=== PATIENT | male | born 2000 | race Caucasian/White ===

== ENCOUNTER 2019-11-01 18:27 | Inpatient (IN) ==
[2019-11-01 18:52] LABS: Appearance Urine Clear (Clear); Bacteria Urine Automated Negative (Negative); Bilirubin Urine Negative (Negative); Blood Urine Trace (Negative); Cast Urine Automated 0 /lpf (0-5); Color Urine Yellow; Epithelial Cell Urine Auto 0-5 /lpf (0-5); Glucose Urine UA Negative (Negative); Ketones Urine 4+ (Negative); Leukocyte Esterase Urine Negative (Negative); Nitrite Urine Negative (Negative); Protein Urine Negative (Negative); RBC Urine Automated 0-4 /hpf (0-4); Urobilinogen Urine Negative (Negative); WBC Urine Automated 0 /hpf (0-5); pH Urine 5.5 (4.5-7.5)
[2019-11-01 19:07] LABS: Basophils # (auto) 0.03 K/uL (0-0.2); Basophils % (auto) 0.2 %; Eosinophils # (auto) 0.03 K/uL (0-0.5); Eosinophils % (auto) 0.2 %; Hematocrit (blood only) 46.4 % (42-52); Hemoglobin 15.8 g/dL (14.0-18.0); Immature Granulocytes # (auto) 0.03 K/uL (0.00-0.02); Immature Granulocytes % (auto) 0.2 %; Lymphocytes # (auto) 1.61 K/uL (1.2-3.4); Lymphocytes % (auto) 12.5 %; Mean Corpuscular Hemoglobin 31.2 pg (25-34); Mean Corpuscular Hgb Conc 34.1 g/dL (32-36); Mean Corpuscular Volume 91.7 fL (80-100); Mean Platelet Volume 11.5 fL (7.4-10.4); Monocytes # (auto) 0.76 K/uL (0.11-0.59); Monocytes % (auto) 5.9 %; Neutrophils # (auto) 10.41 K/uL (1.4-6.5); Platelet Count 259 K/uL (130-400); RDW Coefficient of Variation 13.1 % (11.5-14.5); RDW Standard Deviation 43.7 fL (36.4-46.3); Red Blood Count 5.06 M/uL (4.7-6.1); White Blood Count 12.87 K/uL (4.8-10.8)
[2019-11-01 19:17] LABS: Amphetamines+Metham, Urine Neg (Neg); Barbiturates, Urine Neg (Neg); Benzodiazepine, Urine Neg (Neg); Cocaine, Urine Neg (Neg); MDMA (Ecstacy), Urine Neg (Neg); Methadone, Urine Neg (Neg); Opiate, Urine Neg (Neg); Phencyclidine, Urine Neg (Neg)
[2019-11-01 19:19] LABS: iSTAT Creatinine 0.9 mg/dl (0.6-1.3); iSTAT Hemoglobin 16.3 g/dl (14.0-18.0); iSTAT Ionized Calcium 1.25 mmol/l (1.12-1.32); iSTAT Potassium 3.7 mmol/L (3.3-5.0)
[2019-11-01] MEDS ORDERED: IOVERSOL 100ml IV ONE (19:20)
[2019-11-01 19:23] LABS: Albumin Level 4.4 gm/dl (3.4-5.0); BUN Creatinine Ratio 9.8 (10-20); Calcium 10.3 mg/dl (8.5-10.1); Creatinine Clr Calc Pharmacy 133.5 ml/min; Potassium 3.6 mmol/L (3.5-5.1)
[2019-11-01 19:34] LABS: Bilirubin,Total 0.6 mg/dl (0.2-1); Globulin 4.2 gm/dl (2.5-4.0); Thyroid Stimulating Hormone 2.37 uIu/ml (0.300-4.500); Total Protein 8.6 gm/dl (6.4-8.2)
--- NOTE | 2019-11-01 19:36 | CT Scan Report ---
CT soft tissue neck w con HISTORY: Pt tried to strangle self TECHNIQUE: Multiaxial CT images of the neck were performed following the use of intravenous contrast. COMPARISON STUDY: None. FINDINGS: The visualized brain parenchyma and orbits are unremarkable. Pterygopalatine fossa and para tracheal fat spaces are maintained. The epiglottis and prevertebral soft tissues are normal in thickn ess. The major mucosal airways services are intact. The airway appears patent. The thyroid gland enha nces normally. No cervical lymphadenopathy. The parotid and submandibular glands are symmetric. A few prominent submental lymph nodes are noted. No soft tissue hematoma identified. Small retention cyst within the right maxillary sinus. The mastoid air cells are clear. No fractures within the cervical s pine. No pneumothorax. The lung apices are clear. The carotid arteries, vertebral arteries, and inter nal jugular veins are patent. IMPRESSION: No significant abnormality within the neck. The airway is patent. ACT 112: Negative or not required by law. Electronically signed by: Clayton Chapin M.D. 11/01/2019 7:35 PM
[2019-11-01 19:39] LABS: Acetaminophen < 2 ug/ml (10-30); Salicylate 2.9 mg/dl (2.8-20)
--- NOTE | 2019-11-01 21:27 | Emergency Department Note ---
History of Present Illness General Chief complaint: Mental Health Evaluation Stated complaint: MHID Time Seen by Provider: 11/01/19 18:37 Source: patient, family (father), RN notes reviewed, old records reviewed and police Mode of arrival: other (police) Limitations: no limitations History of Present Illness Provider complaint: Pt c/o trying to kill self Onset (ago): day(s) 1 Location: head Current Pain Intensity: 0 Associated symptoms: + denies other symptoms Treatments prior to arrival: none This is a 19-year-old male who presents the emergency department after trying to kill himself. Patient reports he took ibuprofen as well as melatonin last evening and a suicide attempt. He passed out but then woke up and he believes vomited the medications. In addition to this the patient this afternoon tried to kill himself with a towel by wrapping it around his neck and then wrapping around a doorknob. His father alerted police who found the patient. The patient denies any injury to his neck. He has no complaints at this time. The patient's father does not want the patient to go home. Home Medications Home Medications Medication Instructions Recorded Confirmed Type melatonin 5 mg PO HS PRN 11/01/19 11/01/19 History sertraline [Zoloft] 100 mg PO DAILY 11/01/19 11/01/19 History Allergies Allergy/AdvReac Type Severity Reaction Status Date / Time No Known Allergies Allergy Unverified 11/01/19 18:48 Past Med/Surg History Social History Smoking Status: Current every day smoker Tobacco Type: E-cigarettes / Vaping Feels Safe at Home: Yes Review of Systems A total of 10 systems reviewed and were otherwise negative Physical Exam Vital Signs Vital Signs - 24 hr 11/01/19 18:40 11/01/19 20:38 Temperature 37.4 C Temperature Source Oral Pulse Rate 111 H Pulse Rate [Finger] 80 Respiratory Rate 18 18 Respiratory Effort / Characteristics Non-Labored Respiratory Depth Normal Blood Pressure 176/98 H Blood Pressure [Left Arm] 130/79 Blood Pressure Mean 124 Blood Pressure Mean [Left Arm] 96 Pulse Oximetry 97 96 Oxygen Delivery Method Room Air Room Air Sepsis Recent Fever Within 48 Hours No Sepsis New/Unexplained Change in Mental Status N/A Sepsis Action Taken by Nursing No Action Required VITAL SIGNS - Vital signs and nursing notes were reviewed. GENERAL - 19-year-old male appearing stated age who is in no acute distress. Communicates well with provider and answers questions appropriately. SKIN - Without rashes, no bruising or crepitice noted to neck HEAD - NC/AT. EYES - PERRL with EOMI bilaterally. Sclera anicteric. Palpebral conjunctiva pink and moist with no injection noted. EARS - No deformities of external structures noted on gross examination bilaterally. No pain elicited with palpation of the tragus bilaterally. External auditory canals without discharge or otorrhea. Tympanic membranes pearly pradhan without retraction or bulging. No fluid or purulent material visualized behind the TM. Handle of malleus, umbo, cone of light, pars tensa/flaccid all easily visualized. NOSE - Midline and without cyanosis. No epistaxis or purulent drainage noted. Septum midline without deviation or septal hematoma noted. MOUTH/OROPHARYNX - Without perioral cyanosis. Buccal mucosa pink and moist and without leukoplakia. Tongue midline with equal elevation of palate bilaterally. No tonsillar hypertrophy, erythema, or exudates noted. dentition noted. NECK - Neck with FROM. Supple to palpation. lymphadenopathy noted. No nuchal rigidity. LUNGS - Chest wall symmetric without accessory muscle use, intercostals retractions, or central cyanosis. Normal vesicular breath sounds CTA B/L. No wheezes, rales, or rhonchi appreciated. CARDIAC - RRR with S1/S2. No murmur, rubs, or gallops appreciated. ABDOMEN - Abdominal contour without pulsations or visible masses. BS normoactive all four quadrants. No tenderness, palpable masses, hepatosplenomegaly, or ascites noted. EXTREMITIES - No clubbing or peripheral cyanosis. No pretibial edema present. +3/5 radial, posterior tibial, and dorsalis pedis pulses palpated throughout. +5/5 strength noted in UE/LE bilaterally. NEUROLOGIC - Cranial nerves II through XII grossly intact. Sensory intact to light touch throughout. Patellar reflexes +2/4. PSYCH - A&Ox3 and cooperates fully with examiner. Pt is very pleasant and interacts well with examiner. Course Administered Medications Discontinued Medications Ioversol (Ioversol 100ml) 93 ml IV ONCE ONE Stop: 11/01/19 19:21 Last Admin: 11/01/19 19:20 Dose: 93 ml Documented by: [id number] Medical Decision Making Differential Diagnosis Mood disorder, infection, hypoglycemia, electrolyte abnormalities, cardiac sources, intracerebral event, toxicologic, trauma, neurologic, as well as other pathologies. Medical Records Attestation: I reviewed the patient's medical records. Home Medications Current Medication List: was personally reviewed by me Laboratory Data Attestation: I reviewed the patient's lab results. Result diagrams: 11/01/19 18:56 11/01/19 18:56 Lab Results 11/01/19 11/01/19 11/01/19 Range/Units 18:39 18:39 18:56 WBC 12.87 H (4.8-10.8) K/uL RBC 5.06 (4.7-6.1) M/uL Hgb 15.8 (14.0-18.0) g/dL POC Hgb (14.0-18.0) g/dl Hct 46.4 (42-52) % POC Hct (42-52) % MCV 91.7 (80-100) fL MCH 31.2 (25-34) pg MCHC 34.1 (32-36) g/dL RDW Std Deviation 43.7 (36.4-46.3) fL RDW Coeff of Chelle 13.1 (11.5-14.5) % Plt Count 259 (130-400) K/uL MPV 11.5 H (7.4-10.4) fL Immature Gran % (Auto) 0.2 % Neut % (Auto) 81.0 % Lymph % (Auto) 12.5 % Tate % (Auto) 5.9 % Eos % (Auto) 0.2 % Baso % (Auto) 0.2 % Neut # (Auto) 10.41 H (1.4-6.5) K/uL Lymph # (Auto) 1.61 (1.2-3.4) K/uL Tate # (Auto) 0.76 H (0.11-0.59) K/uL Eos # (Auto) 0.03 (0-0.5) K/uL Baso # (Auto) 0.03 (0-0.2) K/uL Immature Gran # (Auto) 0.03 H (0.00-0.02) K/uL POC Sodium (135-144) mmol/L Sodium (136-145) mmol/L POC Potassium (3.3-5.0) mmol/L Potassium (3.5-5.1) mmol/L POC Chloride (101-112) mmol/L Chloride (98-107) mmol/L Carbon Dioxide (21-32) mmol/L POC Total CO2 (24-31) mmol/L Anion Gap (3-11) POC Anion Gap (16-25) mmol/L POC BUN (7-18) mg/dl BUN (7-18) mg/dl Creatinine (0.6-1.4) mg/dl POC Creatinine (0.6-1.3) mg/dl Est Cr Clr Drug Dosing ml/min Est GFR ( Amer) Est GFR (Non-Af Amer) BUN/Creatinine Ratio (10-20) Glucose (70-99) mg/dl POC Glucose (other) (70-99) mg/dl Calcium (8.5-10.1) mg/dl POC Ioniz Calcium Amy (1.12-1.32) mmol/l Total Bilirubin (0.2-1) mg/dl AST (15-37) U/L ALT (12-78) U/L Alkaline Phosphatase (45-117) U/L Total Protein (6.4-8.2) gm/dl Albumin (3.4-5.0) gm/dl Globulin (2.5-4.0) gm/dl Albumin/Globulin Ratio (0.9-2) TSH (0.300-4.500) uIu/ml Urine Color Yellow Urine Appearance Clear (Clear) Urine pH 5.5 (4.5-7.5) Ur Specific [place] 1.020 (1.000-1.030) Urine Protein Negative (Negative) Urine Glucose (UA) Negative (Negative) Urine Ketones 4+ H (Negative) Urine Blood Trace H (Negative) Urine Nitrite Negative (Negative) Urine Bilirubin Negative (Negative) Urine Urobilinogen Negative (Negative) Ur Leukocyte Esterase Negative (Negative) Urine WBC (Auto) 0 (0-5) /hpf Urine RBC (Auto) 0-4 (0-4) /hpf U Hyaline Cast (Auto) 0 (0-5) /lpf U Epithel Cells (Auto) 0-5 (0-5) /lpf Urine Bacteria (Auto) Negative (Negative) Salicylates (2.8-20) mg/dl Urine Opiates Screen Neg (Neg) Ur Methadone, Qual Neg (Neg) Acetaminophen (10-30) ug/ml Urine Barbiturates Neg (Neg) Ur Phencyclidine (PCP) Neg (Neg) U Amphetamin/Meth Scrn Neg (Neg) MDMA (Ecstasy) Screen Neg (Neg) U Benzodiazepines Scrn Neg (Neg) Ur Cocaine Metabolite Neg (Neg) U Marijuana (THC) Screen Neg (Neg) Ethyl Alcohol mg/dL (0-3) mg/dl 11/01/19 11/01/19 11/01/19 Range/Units 18:56 18:56 18:56 WBC (4.8-10.8) K/uL RBC (4.7-6.1) M/uL Hgb (14.0-18.0) g/dL POC Hgb (14.0-18.0) g/dl Hct (42-52) % POC Hct (42-52) % MCV (80-100) fL MCH (25-34) pg MCHC (32-36) g/dL RDW Std Deviation (36.4-46.3) fL RDW Coeff of Chelle (11.5-14.5) % Plt Count (130-400) K/uL MPV (7.4-10.4) fL Immature Gran % (Auto) % Neut % (Auto) % Lymph % (Auto) % Tate % (Auto) % Eos % (Auto) % Baso % (Auto) % Neut # (Auto) (1.4-6.5) K/uL Lymph # (Auto) (1.2-3.4) K/uL Tate # (Auto) (0.11-0.59) K/uL Eos # (Auto) (0-0.5) K/uL Baso # (Auto) (0-0.2) K/uL Immature Gran # (Auto) (0.00-0.02) K/uL POC Sodium (135-144) mmol/L Sodium 137 (136-145) mmol/L POC Potassium (3.3-5.0) mmol/L Potassium 3.6 (3.5-5.1) mmol/L POC Chloride (101-112) mmol/L Chloride 102 (98-107) mmol/L Carbon Dioxide 23 (21-32) mmol/L POC Total CO2 (24-31) mmol/L Anion Gap 12.0 H (3-11) POC Anion Gap (16-25) mmol/L POC BUN (7-18) mg/dl BUN 10 (7-18) mg/dl Creatinine 1.05 (0.6-1.4) mg/dl POC Creatinine (0.6-1.3) mg/dl Est Cr Clr Drug Dosing 133.5 ml/min Est GFR ( Amer) 117.0 Est GFR (Non-Af Amer) 101.0 BUN/Creatinine Ratio 9.8 L (10-20) Glucose 88 (70-99) mg/dl POC Glucose (other) (70-99) mg/dl Calcium 10.3 H (8.5-10.1) mg/dl POC Ioniz Calcium Amy (1.12-1.32) mmol/l Total Bilirubin 0.6 (0.2-1) mg/dl AST 14 L (15-37) U/L ALT 18 (12-78) U/L Alkaline Phosphatase 116 (45-117) U/L Total Protein 8.6 H (6.4-8.2) gm/dl Albumin 4.4 (3.4-5.0) gm/dl Globulin 4.2 H (2.5-4.0) gm/dl Albumin/Globulin Ratio 1.0 (0.9-2) TSH 2.370 (0.300-4.500) uIu/ml Urine Color Urine Appearance (Clear) Urine pH (4.5-7.5) Ur Specific [place] (1.000-1.030) Urine Protein (Negative) Urine Glucose (UA) (Negative) Urine Ketones (Negative) Urine Blood (Negative) Urine Nitrite (Negative) Urine Bilirubin (Negative) Urine Urobilinogen (Negative) Ur Leukocyte Esterase (Negative) Urine WBC (Auto) (0-5) /hpf Urine RBC (Auto) (0-4) /hpf U Hyaline Cast (Auto) (0-5) /lpf U Epithel Cells (Auto) (0-5) /lpf Urine Bacteria (Auto) (Negative) Salicylates 2.9 (2.8-20) mg/dl Urine Opiates Screen (Neg) Ur Methadone, Qual (Neg) Acetaminophen < 2 L (10-30) ug/ml Urine Barbiturates (Neg) Ur Phencyclidine (PCP) (Neg) U Amphetamin/Meth Scrn (Neg) MDMA (Ecstasy) Screen (Neg) U Benzodiazepines Scrn (Neg) Ur Cocaine Metabolite (Neg) U Marijuana (THC) Screen (Neg) Ethyl Alcohol mg/dL < 3.0 (0-3) mg/dl 11/01/19 Range/Units 19:06 WBC (4.8-10.8) K/uL RBC (4.7-6.1) M/uL Hgb (14.0-18.0) g/dL POC Hgb 16.3 (14.0-18.0) g/dl Hct (42-52) % POC Hct 48 (42-52) % MCV (80-100) fL MCH (25-34) pg MCHC (32-36) g/dL RDW Std Deviation (36.4-46.3) fL RDW Coeff of Chelle (11.5-14.5) % Plt Count (130-400) K/uL MPV (7.4-10.4) fL Immature Gran % (Auto) % Neut % (Auto) % Lymph % (Auto) % Tate % (Auto) % Eos % (Auto) % Baso % (Auto) % Neut # (Auto) (1.4-6.5) K/uL Lymph # (Auto) (1.2-3.4) K/uL Tate # (Auto) (0.11-0.59) K/uL Eos # (Auto) (0-0.5) K/uL Baso # (Auto) (0-0.2) K/uL Immature Gran # (Auto) (0.00-0.02) K/uL POC Sodium 139 (135-144) mmol/L Sodium (136-145) mmol/L POC Potassium 3.7 (3.3-5.0) mmol/L Potassium (3.5-5.1) mmol/L POC Chloride 100 L (101-112) mmol/L Chloride (98-107) mmol/L Carbon Dioxide (21-32) mmol/L POC Total CO2 22 L (24-31) mmol/L Anion Gap (3-11) POC Anion Gap 23.0 (16-25) mmol/L POC BUN 11 (7-18) mg/dl BUN (7-18) mg/dl Creatinine (0.6-1.4) mg/dl POC Creatinine 0.9 (0.6-1.3) mg/dl Est Cr Clr Drug Dosing ml/min Est GFR ( Amer) Est GFR (Non-Af Amer) BUN/Creatinine Ratio (10-20) Glucose (70-99) mg/dl POC Glucose (other) 89 (70-99) mg/dl Calcium (8.5-10.1) mg/dl POC Ioniz Calcium Amy 1.25 (1.12-1.32) mmol/l Total Bilirubin (0.2-1) mg/dl AST (15-37) U/L ALT (12-78) U/L Alkaline Phosphatase (45-117) U/L Total Protein (6.4-8.2) gm/dl Albumin (3.4-5.0) gm/dl Globulin (2.5-4.0) gm/dl Albumin/Globulin Ratio (0.9-2) TSH (0.300-4.500) uIu/ml Urine Color Urine Appearance (Clear) Urine pH (4.5-7.5) Ur Specific [place] (1.000-1.030) Urine Protein (Negative) Urine Glucose (UA) (Negative) Urine Ketones (Negative) Urine Blood (Negative) Urine Nitrite (Negative) Urine Bilirubin (Negative) Urine Urobilinogen (Negative) Ur Leukocyte Esterase (Negative) Urine WBC (Auto) (0-5) /hpf Urine RBC (Auto) (0-4) /hpf U Hyaline Cast (Auto) (0-5) /lpf U Epithel Cells (Auto) (0-5) /lpf Urine Bacteria (Auto) (Negative) Salicylates (2.8-20) mg/dl Urine Opiates Screen (Neg) Ur Methadone, Qual (Neg) Acetaminophen (10-30) ug/ml Urine Barbiturates (Neg) Ur Phencyclidine (PCP) (Neg) U Amphetamin/Meth Scrn (Neg) MDMA (Ecstasy) Screen (Neg) U Benzodiazepines Scrn (Neg) Ur Cocaine Metabolite (Neg) U Marijuana (THC) Screen (Neg) Ethyl Alcohol mg/dL (0-3) mg/dl Imaging Data Radiologist's Impression: [facility] [place] [phone] CT Scan Report Patient: YISSEL GEORGE Admit Date: 11/01/19 MR#: [id number] Address1: Acct ID:[id number] Address2: Date: 2000 [facility] Zip: Age: 19 Location: ED Sex: M Room/Bed: Att Phy: Diagnosis: MHID Bouch[place] Phy: PCP,NO Service Date: 11/01/19 [facility] Phy: Interpreting Phy: Clayton Chapin MD Admit Phy: Ordering Phy: Santiago Saavedra MD cc: ~ CT soft tissue neck w con HISTORY: Pt tried to strangle self TECHNIQUE: Multiaxial CT images of the neck were performed following the use of intravenous contrast. COMPARISON STUDY: None. FINDINGS: The visualized brain parenchyma and orbits are unremarkable. Pterygopa latine fossa and paratracheal fat spaces are maintained. The epiglottis and prevertebral soft tissues are normal in thickness. The major mucosal airways services are intact. The airway appears patent. The thyroid gland enhances normally. No cervical lymphadenopathy. The parotid and submandibular glands are symmetric. A few prominent submental lymph nodes are noted. No soft tissue hematoma identified. Small retention cyst within the right maxillary sinus. The mastoid air cells are clear. No fractures within the cervical spine. No pneumothorax. The lung apices are clear. The carotid arteries, vertebral arteries, and internal jugular veins are patent. IMPRESSION: No significant abnormality within the neck. The airway is patent. ACT 112: Negative or not required by law. Electronically signed by: Clayton Chapin M.D. 11/01/2019 7:35 PM Dictated: 11/01/191927 Transcribed: 11/01/191927 [facility] Narrative This is a 19-year-old male who presents emergency department with 2 suicide attempts the past 12 hours. Due to the nature of the patient second attempt he was sent for CAT scan of the soft tissue of the neck. This does not show any evidence of injury. He was medically cleared by me he was independently evaluated by psychiatric case management. Patient was seen and evaluated as above in room A5. Review was performed of nursing notes and vital signs. I did review pertinent previous visits and patient history. After obtaining a thorough history and physical examination the above work up was performed. The patient was evaluated during the global COVID-19 pandemic, and that diagnosis was suspected/considered upon their initial presentation. Their evaluation, treatment and testing was consistent with current guidelines for patients who present with complaints or symptoms that may be related to COVID- 19. Impression & Plan Suicide gesture, Mood disorder Discharge Plan Visit Data Chief Complaint: Mental Health Evaluation Stated Complaint: MHID ED Provider: Santiago Saavedra Discharge Problem: Suicide gesture, Mood disorder Patient Disposition: Admitted As Inpatient Discharge Instructions Interventions: ED Discharge Assessment Last Done: 11/02/19 00:00 Discharge Problem: Suicide gesture Qualifiers: Encounter type: initial encounter Qualified Code(s): X83.8XXA - Intentional self-harm by other specified means, initial encounter
[2019-11-02] MEDS ORDERED: ACETAMINOPHEN 325 MG TAB PO PRN (00:55)
[2019-11-02] MEDS ORDERED: BISMUTH SUBSALICYLATE PER ML OMNICELL CHARGE PO PRN (00:55)
[2019-11-02] MEDS ORDERED: SODIUM CHLORIDE 0.65% NA SOLN 45 ML (OCEAN) PRN (00:55)
[2019-11-02] MEDS ORDERED: ALUMINUM/MAGNESIUM SUSP 30 ML UDC PO PRN (00:55)
[2019-11-02] MEDS ORDERED: MAGNESIUM HYDROXIDE SUSP 30 ML UDC PO PRN (00:55)
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
--- NOTE | 2019-11-02 15:04 | Communication Note ---
Date of Service: November 02, 2019 Called patient's parents after received a VM from his mother, Ayanna, requesting a call back as they wanted to talk to me prior to the family meeting tomorrow. They wanted to know about the initial assessment, reviewed the patient's initial presentation and his report that his suicidal gestures were not intended to end his life, but were designed to allow him to go home quickly, as he was lonely and homesick. His parents state he has "never really acknowledged that in the past," and is often not truthful about his intentions with his actions. They are concerned that he has struggled to cope with life outside of the house, and has failed to launch. He has been working on this and they thought he was doing better over the summer, was going to work and the gym and interacting with others well. Discussed that I'd like to discuss this with Dr. Smith who has been working with him for a couple of years. They spoke with her and she's recommended an intensive therapy program ([facility]?) which they have in their area. While on the phone with parents, he called them on another phone and told them he submitted a 72 hour notice requesting to leave the hospital, as he wanted to go home. They are not in favor of rapid discharge and want him to have "a plan to move to move forward."
[2019-11-03] MEDS ORDERED: MELATONIN 3 MG TAB PO PRN (08:45)
[2019-11-03] MEDS: SERTRALINE HCL 100 MG TABLET PO SCH (09:25)
--- NOTE | 2019-11-03 13:17 | Psychiatric Progress Note ---
Date of Service November 03, 2019 Impression / Recommendations Impression 19 y/o [employer] student from [facility] who has a history of depression and anxiety, and is admitted voluntarily with worsening mood and multiple suicidal gestures (overdose and strangulation w/ a towel). He reports acute mood decompensation with move to [place] and wants to return home with his parents, where he feels "safe" and "comfortable". Pt is now considering a PHP (as previously discussed with his outpatient psychiatrist), and feels he may not be able to continued online classes through [employer]. Parents were involved in a family meeting via phone - it seems patient may be misinterpreting some of their requests for treatment. Pt did submit a 72-hour notice, which expires on 11/05/2019. Pt has been preoccupied with discharge, though clearly has not yet processed many of the events leading to his admission. Aftercare planning is still in progress. Inpatient treatment is medically necessary due to the risk of suicide if discharged prematurely. (1) Suicide gesture: 11/01 - No medical sequelae of overdose - Encourage patient to engage in groups, work on healthy coping skills and discharge safety plan - will recommend no access to meds. He denies access to guns. - Schedule family meeting with parents. Patient wants to move home and do classes remotely. 11/02 - Pt denies current SI, but has only been investing superficial efforts in development of safety plan - Discussed continued inpatient stay to ensure stability of mood and that patient has worked on way to better tolerate stress and frustration - 72-hour notice submitted. Explained to patient the ongoing safety concerns related to discharge at this time. We are recommending ongoing hospitalization based on reasoning above. (2) Depression: 11/01 - Continue home dose of sertraline 100mg daily. Patient reports this dose has been effective for mood and anxiety symptoms, and symptoms were only exacerbated 5 days ago in the context of transferring to [place]/moving away from home. - Coordinate with outpatient psychiatrist Dr. Smith in [place]. Explore whether she will do therapy, or if he should be referred for an individual therapist. 11/02 - Continue sertraline 100mg. - Brief coordination via phone with Dr. Smith - reported that most of the issues patient has been facing require therapeutic intervention as opposed to medication adjustments, and has been recommending PHP even prior to this hospitalization. She is available this afternoon and is hoping to be able to coordinate more with staff regarding discharge plan. - Pt agreeable with PHP referrals - Family meeting with parents this morning. Ultimately, it seems parents will allow patient to return home, but they are requesting additional efforts from the patient regarding a clear plan for discharge and commitment to treatment. It seems that the patient is not yet understanding of this request, and he remains preoccupied with discharge timeline. Risk Factors Assessment Male: Yes : Yes Do You Have Access To A Gun?: No (not at his dorm or at parents' house) Health Problems: No Mental Health Diagnoses: Yes Substance Use Disorders: No Previous Attempt: Yes Previous Attempt; Highly Lethal: No Family History of Suicide: No Previous Psychiatric Hospitalization: Yes Hopelessness: Yes Smoker: Yes Protective Factors Assessment Mandaen Beliefs: No : No Responsible for Young Children: No Employed: No Stable Relationships: Yes Supportive Family: Yes Interval History Identifying Information YISSEL GEORGE is a 19-year-old [employer] student from [place], [place] who has a history of depression, and was admitted on 11/01/19 22:58 on a 201 voluntary commitment for suicide attempts x 2. Chief Complaint "I'm really doing a lot better now. What started it was that I was having issues and I felt alone." Review of Systems Notes Constitutional: denied Cardiovascular: denied Respiratory: denied Gastrointestinal: denied Neurological: denied Psychiatric: denies symptoms other than stated above Total of at least 10 systems reviewed, pertinent positives as above and in HPI. Sleep Information Total Hours of Sleep: 7.25 Sleep Comments: pt on q-15 minute checks Meal Information Percent Meal Consumed - Breakfast: 90 Percent Meal Consumed - Lunch: 100 Percent Meal Consumed - Dinner: 80 Subjective Subjective Patient was seen & assessed and interval progress reviewed with nursing and s ocial work. Staff report the patient has been attending group programming. He reportedly emailed his outpatient psychiatrist last evening for coordination of aftercare planning. It was reported by patient that he had performed the multiple suicidal gestures to manipulate his parents into allowing him to return home rather than remain in school. Family meeting is scheduled for this morning with parents, with reports that they are willing for patient to return home but only if patient has invested time in creating a clear plan for how he plans to proceed. This provider was able to briefly speak with the patient's outpatient psychaitrist, Dr. Nathaly Smith, who states she had been speaking with the family about recommendation for PHP. She felt patient's presentation is not likely amenable to medication adjustments, but rather therapeutic interventions. Pt was seen today to assess progress since admission. Pt appears euthymic and begins our session by sharing about all that he feels he has learned from groups. He does admit that his suicidal gestures and presentation was related to "I was having issues and I felt alone." Pt was asked to provide a summary of the phone meeting with his parents. He initially stated "they just want to make sure you, or another medical provider, are ok with me being discharged." This provider explained that we are not in support of discharge at this time, and shared concerns related to multiple attempts to harm himself, very brief hospitalization thus far, and limited time to focus on safety planning and developing coping skills to assist him in times of stress. When asked more specific questions about the meeting, the patient states "I realized I need to start making my own decisions, and the first step is me deciding when I'm ready to leave." Pt shared that he felt "unsupported" by staff, perceiving that we are taking "my parents side" rather than supporting his request for discharge. Pt was reminded that while his thoughts are taken into account, discharge planning is a treatment team decision - and that we are rather concerned that discharge at this time would be very premature. Pt was asked to share what has changed since his admission, and he was able to insightfully state "I realized I need to learn to be comfortable with being uncomfortable." Unfortunately, when patient was asked how he felt he could apply this to his life, he returned to "be more assertive and independent, like deciding what I think I need instead of letting my parents make decisions for me." Pt is able to state his plans on discharge would be to return home and begin a PHP to focus on therapy and "really get into what I need for my mental health." He states "academics come second", and recognizes that he may not be able to do online course work for [employer] if he is enrolled in a PHP. We discussed the logistics of a 72-hour notice, with this provider explaining possible discharge outcomes (i.e. 302 if acute safety concerns, AMA discharge, etc.) and ultimately reviewed recommendation that patient rescind his 72-hour notice. Pt requests multiple times that this provider call his parents directly to share "support of my 70, that you feel I am ready to leave Thursday." This provider continued to redirect conversation to treatment goals and explained that it was premature to state that we would support Thursday discharge. Pt was encouraged to focus on continued group attendance and clear plans for discharge (schedule, routines, communication with parents, and commitment to treatment). He denied additional needs or concerns. Pt did request to speak with this provider again about 5 minutes after our session to request this provider call his parents to share support of discharge - again redirected patient to treatment goals, development of safety plan, and working on practicing effective coping strategies. Physical Exam Vital Signs (Past 24 Hours) Last Vital Signs Temp 36.9 C 11/03/19 07:09 Pulse 92 H 11/03/19 07:10 Resp 18 11/03/19 07:09 BP 127/78 11/03/19 07:10 Pulse Ox 98 11/01/19 23:59 Results & Data ([facility]) Current Inpatient Medications Current Inpatient Medications: Current Inpatient Medications Acetaminophen (Acetaminophen 325 Mg Tab) 650 mg PO Q4H PRN PRN Reason: Headache or Minor Fever Stop: 12/02/19 00:54 Al Hydrox/Mg Hydrox/Simethicone (Aluminum/Magnesium Susp 30 Ml Udc) 30 ml PO Q4H PRN PRN Reason: GI Upset Stop: 12/02/19 00:54 Bismuth Subsalicylate (Bismuth Subsalicylate Per Ml Omnicell Charge) 15 ml PO PRN PRN PRN Reason: Loose Stool Stop: 12/02/19 00:54 Hydroxyzine HCl (Hydroxyzine Hcl 25 Mg Tab) 50 mg PO HSZ PRN PRN Reason: Insomnia Stop: 12/02/19 00:54 Hydroxyzine HCl (Hydroxyzine Hcl 25 Mg Tab) 25 mg PO Q4H PRN PRN Reason: Anxiety Stop: 12/02/19 00:54 Magnesium Hydroxide (Magnesium Hydroxide Susp 30 Ml Udc) 30 ml PO DAILY PRN PRN Reason: Constipation Stop: 12/02/19 00:54 Melatonin (Melatonin 3 Mg Tab) 3 mg PO HSZ PRN; Protocol PRN Reason: Sleep Stop: 12/03/19 08:44 Sertraline HCl (Sertraline Hcl 100 Mg Tablet) 100 mg PO DAILY [facility] Stop: 12/03/19 08:59 Last Admin: 11/03/19 09:25 Dose: 100 mg Documented by: Sodium Chloride (Sodium Chloride 0.65% Na Soln 45 Ml ([place])) 1 - 2 sprays NA PRN PRN PRN Reason: Nasal Dryness/Congestion Stop: 12/02/19 00:54 Mental Health & Subst Abuse Tx Psychiatrist Name of Psychiatrist: Dr Nathaly Smith Psychiatrist's Date of Appointment with Psychiatrist: 11/02/19 Time of Appointment with Psychiatrist: 1600 Therapist Name of Therapist: None [employer] Racing Handicapper Name of Harness Racing Handicapper: None Post Discharge Appointments Primary Care Physician Name Of Family Doctor: Dr Melo Contact Information Discharge Discharge Address: [address] [place] [id number] (1) Suicide gesture Encounter type: initial encounter Qualified Code(s): X83.8XXA - Intentional self-harm by other specified means, initial encounter
--- NOTE | 2019-11-03 16:27 | Communication Note ---
Date of Service: November 03, 2019 Spoke with patient who approached me immediately on arrival on the unit asking if he could leave after his meeting, focused on how quickly he can return home. He has social anxiety disorder, mild ASD, poor self esteem, but is very avoidant and possibly has avoidant PD. He tends to avoid anything that challenges him out of his comfort zone. He is not always truthful, re: nicotine use and communication w/ an ex girlfriend. Mother can be controlling, and he has little drive so allows he to direct things for him. He contacted his doctor to tell her she needed to convince his parents to let him come home. She is recommending PHP.
[2019-11-04] MEDS: SERTRALINE HCL 100 MG TABLET PO SCH (09:17)
--- NOTE | 2019-11-04 12:43 | Psychiatric Progress Note ---
Date of Service November 04, 2019 Impression / Recommendations Impression 19 y/o [employer] student from [facility] who has a history of depression and anxiety, and is admitted voluntarily with worsening mood and multiple suicidal gestures (overdose and strangulation w/ a towel). He reports acute mood decompensation with move to [place] and wants to return home with his parents, where he feels "safe" and "comfortable". Pt is now considering a PHP (as previously discussed with his outpatient psychiatrist), and feels he may not be able to continued online classes through [employer]. Parents were involved in a family meeting via phone - it seems patient may be misinterpreting some of their requests for treatment. Pt did submit a 72-hour notice, which expires on 11/05/2019. Pt has been preoccupied with discharge. Aftercare planning now complete, though due to safety concern and obvious need to further develop effective coping strategies, it was recommended patient remain in the hospital until the expiration of his 72-hour notice. Inpatient treatment is medically necessary due to the risk of suicide if discharged prematurely. (1) Suicide gesture: 11/01 - No medical sequelae of overdose - Encourage patient to engage in groups, work on healthy coping skills and discharge safety plan - will recommend no access to meds. He denies access to guns. - Schedule family meeting with parents. Patient wants to move home and do classes remotely. 11/02 - Pt denies current SI, but has only been investing superficial efforts in development of safety plan - Discussed continued inpatient stay to ensure stability of mood and that patient has worked on way to better tolerate stress and frustration - 72-hour notice submitted. Explained to patient the ongoing safety concerns related to discharge at this time. We are recommending ongoing hospitalization based on reasoning above. (2) Depression: 11/01 - Continue home dose of sertraline 100mg daily. Patient reports this dose has been effective for mood and anxiety symptoms, and symptoms were only exacerbated 5 days ago in the context of transferring to [place]/moving away from home. - Coordinate with outpatient psychiatrist Dr. Smith in [place], [place]. Explore whether she will do therapy, or if he should be referred for an individual therapist. 11/02 - Continue sertraline 100mg. - Brief coordination via phone with Dr. Smith - reported that most of the issues patient has been facing require therapeutic intervention as opposed to medication adjustments, and has been recommending PHP even prior to this hospitalization. She is available this afternoon and is hoping to be able to coordinate more with staff regarding discharge plan. - Pt agreeable with PHP referrals - Family meeting with parents this morning. Ultimately, it seems parents will allow patient to return home, but they are requesting additional efforts from the patient regarding a clear plan for discharge and commitment to treatment. It seems that the patient is not yet understanding of this request, and he remains preoccupied with discharge timeline. 11/03 - Continue as above - Intake scheduled with PHP, aftercare plans discussed with patient and parents - Anticipate discharge tomorrow at expiration of 72-hour notice Risk Factors Assessment Male: Yes : Yes Do You Have Access To A Gun?: No (not at his dorm or at parents' house) Health Problems: No Mental Health Diagnoses: Yes Substance Use Disorders: No Previous Attempt: Yes Previous Attempt; Highly Lethal: No Family History of Suicide: No Previous Psychiatric Hospitalization: Yes Hopelessness: Yes Smoker: Yes Protective Factors Assessment Moravian Beliefs: No : No Responsible for Young Children: No Employed: No Stable Relationships: Yes Supportive Family: Yes Interval History Identifying Information YISSEL GEORGE is a 19-year-old M [employer] student from [place], [place] who has a history of depression, and was admitted on 11/01/19 22:58 on a 201 voluntary commitment for suicide attempts x 2. Chief Complaint "Oh my gosh, I'm doing a million times better." Review of Systems Notes Constitutional: denied Cardiovascular: denied Respiratory: denied Gastrointestinal: denied Neurological: denied Psychiatric: denies symptoms other than stated above Total of at least 10 systems reviewed, pertinent positives as above and in HPI. Sleep Information Total Hours of Sleep: 8.25 Sleep Comments: pt on q-15 minute checks Meal Information Percent Meal Consumed - Breakfast: 100 Percent Meal Consumed - Lunch: 90 Percent Meal Consumed - Dinner: 100 Subjective Subjective Patient was seen & assessed and interval progress reviewed with treatment team. Staff report the patient has been attending group programming and continues to be focused on discharge. He has requested to meet with numerous staff today to confirm the plan for discharge tomorrow. Pt had a family meeting with his parents yesterday, and an additional call with parents today to discuss aftercare planning which includes an upcoming intake for an IOP. Pt rated his mood an 8/10. Pt was seen today to assess progress since admission. Pt states "oh my gosh, I'm doing a million times better." He continues to speak about how helpful his hospitalization as been and continues to given complements to various staff. Pt states "this is a new chapter in my life, and I hope it's one of more independence." Pt says the follow-up phone call with his parents went well, and only when asked, discussed restrictions that are going to be in place on discharge. Pt states "my dad told me I don't live at a hotel, that they are going to be expecting me to do my own laundry and make my bed." Pt states he is fine with these expectations as "they will help me be more independent." Pt continues to report feeling comfortable with discharge tomorrow at the expiration of his 72-hour notice. He continues to deny SI. Pt denies other needs or concerns today. Physical Exam Psychiatric Orientation: alert, oriented x 3 and cooperative Apperance: appropriately dressed, appropriately groomed and appeared stated age Eye Contact: good eye contact Motor Behavior: steady gait and station and no abnormal motor movements Speech: normal rate/rhythm/volume of speech Affect: euthymic affect and mood congruent with affect Mood: no depressed mood ("I actually feel 1000% happy!") and no anxious mood Thought Process: goal directed thought process and + concrete thought process Thought Content: + cognitive distortions (seems to be most consistent with mild ASD diagnosis); no delusions, no hopelessness and no worthlessness Suicidal Thoughts: denies suicidal thoughts Homicidal Thoughts: denies homicidal thoughts Hallucinations: no auditory hallucinations and no visual hallucinations Cognition: recent memory grossly intact, attention grossly intact and language grossly intact Estimated Intelligence: consistent with education level Insight: + limited insight (chronically limited, though improved from admission) Judgement: + fair judgement Vital Signs (Past 24 Hours) Last Vital Signs Temp 36.6 C 11/04/19 06:00 Pulse 109 H 11/04/19 06:32 Resp 18 11/04/19 06:00 BP 117/70 11/04/19 06:32 Pulse Ox 98 11/01/19 23:59 Results & Data ([facility]) Current Inpatient Medications Current Inpatient Medications: Current Inpatient Medications Acetaminophen (Acetaminophen 325 Mg Tab) 650 mg PO Q4H PRN PRN Reason: Headache or Minor Fever Stop: 12/02/19 00:54 Al Hydrox/Mg Hydrox/Simethicone (Aluminum/Magnesium Susp 30 Ml Udc) 30 ml PO Q4H PRN PRN Reason: GI Upset Stop: 12/02/19 00:54 Bismuth Subsalicylate (Bismuth Subsalicylate Per Ml Omnicell Charge) 15 ml PO PRN PRN PRN Reason: Loose Stool Stop: 12/02/19 00:54 Hydroxyzine HCl (Hydroxyzine Hcl 25 Mg Tab) 50 mg PO HSZ PRN PRN Reason: Insomnia Stop: 12/02/19 00:54 Last Admin: 11/03/19 20:35 Dose: 50 mg Documented by: Hydroxyzine HCl (Hydroxyzine Hcl 25 Mg Tab) 25 mg PO Q4H PRN PRN Reason: Anxiety Stop: 12/02/19 00:54 Magnesium Hydroxide (Magnesium Hydroxide Susp 30 Ml Udc) 30 ml PO DAILY PRN PRN Reason: Constipation Stop: 12/02/19 00:54 Melatonin (Melatonin 3 Mg Tab) 3 mg PO HSZ PRN; Protocol PRN Reason: Sleep Stop: 12/03/19 08:44 Sertraline HCl (Sertraline Hcl 100 Mg Tablet) 100 mg PO DAILY [facility] Stop: 12/03/19 08:59 Last Admin: 11/04/19 09:17 Dose: 100 mg Documented by: Sodium Chloride (Sodium Chloride 0.65% Na Soln 45 Ml ([place])) 1 - 2 sprays NA PRN PRN PRN Reason: Nasal Dryness/Congestion Stop: 12/02/19 00:54 Mental Health & Subst Abuse Tx Psychiatrist Name of Psychiatrist: Dr Nathaly Smith Psychiatrist's Date of Appointment with Psychiatrist: 11/02/19 Time of Appointment with Psychiatrist: 1600 Therapist Name of Therapist: None Retail And Restaurant Associate Name of Retail And Restaurant Associate: None Post Discharge Appointments Primary Care Physician Name Of Family Doctor: Dr Melo Partial or Psych Rehab Name of Partial or Psych Rehab: [facility] Hospital[facility], Dr. Arroyo Phone Number of Partial or Psych Rehab: [phone] Date of Appointment at Partial or Psych Rehab: 11/10/19 Time of Appointment at Partial or Psych Rehab: 9am Partial or Psych Rehab Appointment Comment: appt is virtual and they will email you instructions. program [id number]:[id number]:30 Other #1: Name of Aftercare Appointment: [facility] Phone Number of Aftercare Appointment: [phone] Date of Aftercare Appointment: 11/07/19 Time of Aftercare Appointment: 2pm Aftercare Appointment Comment: Brenda will call you. Contact Information Discharge Discharge Address: [address] [place] [id number] (1) Suicide gesture Encounter type: initial encounter Qualified Code(s): X83.8XXA - Intentional self-harm by other specified means, initial encounter
[2019-11-05] MEDS: SERTRALINE HCL 100 MG TABLET PO SCH (08:38)
--- NOTE | 2019-11-05 08:55 | Discharge Summary ---
Date of Service November 05, 2019 History of Present Illness Pt presented to the ER on a 302 warrant. business enterprise officer completed Box B petitioning statement which reads: "Subject did attempt suicide by taking various pills and attempted to hang himself with a towel. Did attempt to continue thoughts of self harm. The suicide attempt was on 10/31/2019 at his dorm on campus." He reported taking 2 tablets each of Melatonin, Aleve, and Zoloft. He had just returned to [employer] [facility] [employer], just transferred to main [employer] from [employer], and did not feel ready for school. The patient states he is diagnosed with Separation Anxiety, Social Anxiety, Generalized Anxiety, and Depression. Patient stated "I'm a very social person and I feel alone with no football or no social activities." Patient stated he feels hopeless and helpless. Patient stated he took approx. 2 tablets each of Melatonin, Aleve, and Zoloft the night prior to presentation in an attempt to end his life, and also attempted to strangle himself. He reports a prior suicide attempt in 2018 by strangulation with a towel, and last summer "I tried to cut my neck with a knife." He reports compliance with his medications (sertraline 100mg and melatonin 5mg HS), and denied substance abuse. Patient was willing for inpatient mental health treatment and signed in voluntarily. On my assessment, he reports he has struggled with depression and anxiety for a couple of years, initially occurred when he came to [facility] in summer 2017 He states mood was "great" prior to coming to [place] last Thursday, 5 days ago, "I just love being at home." States he was "apprehensive about coming to school with the COVID situation, with the lack of social aspect, I'm a really social person." His mood decreased Thursday after his parents left, and he "really lonely," isolated as "can't be social, can't do what I want to do, no freedom." [place] he had "tons of free time, and I just spiraled." Notes he likes a regimented routine, and didn't have that here. Talked to his parents about "switching to virtual and coming home," but "they blew me off." [place] "I couldn't deal with the loneliness anymore, just really wanted to see my family." Says he "felt like I wouldn't see them for a while, and my mind just couldn't wrap around that." On Thursday he took the overdose as above, stating he was "suffering alone, my parents weren't really listening, my words weren't seeming to do anything, so I thought actions would, thought I'd see them again, sooner... I needed something to help the pain of being alone." He then tried to tie a towel around his neck, but denies that he tightened enough to effect his breathing. He felt drowsy and groggy, and did not tell anyone until Thursday, when he tried to call his father, he didn't answer, so sent him a text message. Talked to his mother first but "she just blew me off." Appetite has been decr eased since leaving home, lost 7 lbs, and sleep has been increased. Focus has been impaired, feels anxious and perseverates on missing family. Continues to report feeling lonely and overwhelmed, does not want to stay in [place] and plans to return home w/ parents. His psychiatrist at home just recently increased sertraline to 100mg in preparation for coming to [place], as he was "stressed about going." Reports anxiety with restlessness, difficulty focusing, racing thoughts, crying, triggered by "being aware from my parents, my home, my comfort zone, don't know what's going to happen." He has had panic w/ SOB, feeling of throat closing, feels hot, which are infrequent since starting medication. He is very focused on being discharged "as soon as I can, want to see my parents as soon as possible, and go back home." Feels medication has been very helpful for him, as much less anxious since starting SSRI. Physical Exam Psychiatric Orientation: alert and cooperative Apperance: appropriately dressed, appropriately groomed and appeared stated age Eye Contact: good eye contact Motor Behavior: steady gait and station and no abnormal motor movements Speech: normal rate/rhythm/volume of speech Affect: euthymic affect (With mild anxiety) "Really good." Thought Process: goal directed thought process Suicidal Thoughts: denies suicidal thoughts Homicidal Thoughts: denies homicidal thoughts Hallucinations: no auditory hallucinations Cognition: recent memory grossly intact, attention grossly intact and language grossly intact Insight: + impaired insight Judgement: + impaired judgement Vital Signs (Past 24 Hours) Last Vital Signs Temp 36.6 C 11/05/19 08:47 Pulse 92 H 11/05/19 08:47 Resp 18 11/05/19 08:47 BP 132/81 11/05/19 08:47 Pulse Ox 98 11/05/19 08:47 Principal Diagnosis Major depressive disorder, recurrent Social anxiety disorder Avoidant personality traits Rule out autism spectrum disorder Psychiatric Data The patient was hospitalized for 4 days. He was continued on his home dose of sertraline after discussion with his outpatient psychiatrist, as presenting symptoms did not appear to be related to his underlying mood or anxiety disorders, but rather a maladaptive coping strategy as he engaged in para suicidal behavior and attempt to get parents to agree for him to return home and do school remotely. He attended and participated in groups and therapy, work on healthy coping skills and his discharge safety plan. His parents were involved throughout his hospitalization, and had a family meeting with the patient and the psychiatric social worker supervisor to discuss discharge planning. They agreed to bring him home, and to enroll him in a PHP on the recommendation of his outpatient psychiatrist. He and his parents were able to agree on a goal for him to increase his independence, and parents reviewed expectations including that he would have responsibilities at home. He submitted a 72-hour notice requesting to withdraw from treatment, was very focused on returning home as fast as possible. He consistently denied thoughts of harming himself in the hospital, and was able to work on healthy coping skills. Day of Discharge Assessment Patient reports his mood is "really good," states he is looking forward to discharge and to returning home with his parents. They are coming to pick him up. He is planning to start PHP at [facility] on Thursday. States he has adequate supply of sertraline at home. He is hoping to continue with some of his college classes, and has a meeting with student care and advocacy next week to discuss his academic situation. He denies any safety concerns with discharge. Transition of Care Transition Of Care Record: was reviewed with the patient Advance Directives Advance Directives Information Provided: Yes Advance Directives: No Mental Health Advance Directive: No Advance Directives on File: No Living Will: No Power of Aix Administrator: No Advance Directives Reason:: Declines as Mental Health Visit. Risk Factors Assessment Risk factors were medicated by admission to the inpatient unit, use of medication to target mood and anxiety symptoms, coordination with [place] psychiatrist [place], family meeting with his parents, group attendance and participation, working on healthy coping skills and discharge safety plan, and referring him for a higher level of outpatient care ([facility]). Patient is reporting improved mood, has consistently denied suicidal thoughts or though ts/urges to self-harm, is taking medication as prescribed, eating and sleeping well, and performing ADLs independently. He has submitted to 72-hour notice to withdraw from treatment, and is requesting discharge. He will be discharged to the care of his parents, who will transport him home to live with them. He is no longer at acute risk of harm to himself, so can be managed as an outpatient at this time. Male: Yes : Yes Do You Have Access To A Gun?: No (not at his dorm or at parents' house) Health Problems: No Mental Health Diagnoses: Yes Substance Use Disorders: No Previous Attempt: Yes Previous Attempt; Highly Lethal: No Family History of Suicide: No Previous Psychiatric Hospitalization: Yes Hopelessness: Yes Smoker: Yes Protective Factors Assessment Mandaen Beliefs: No : No Responsible for Young Children: No Employed: No Stable Relationships: Yes Supportive Family: Yes Tobacco Cessation at Discharge Tobacco Cessation Medication Prescribed at Discharge: Not Applicable/Non-Smoker Total Time Total Time Spent: Greater Than 30 Minutes Total Time Includes: Examination of the patient, Discharge Planning and Medication Reconciliation Discharge Data Lab Results 11/01/19 11/01/19 11/01/19 18:39 18:39 18:56 WBC 12.87 H RBC 5.06 Hgb 15.8 POC Hgb Hct 46.4 POC Hct MCV 91.7 MCH 31.2 MCHC 34.1 RDW Std Deviation 43.7 RDW Coeff of Chelle 13.1 Plt Count 259 MPV 11.5 H Immature Gran % (Auto) 0.2 Neut % (Auto) 81.0 Lymph % (Auto) 12.5 Griggs % (Auto) 5.9 Eos % (Auto) 0.2 Baso % (Auto) 0.2 Neut # (Auto) 10.41 H Lymph # (Auto) 1.61 Griggs # (Auto) 0.76 H Eos # (Auto) 0.03 Baso # (Auto) 0.03 Immature Gran # (Auto) 0.03 H POC Sodium Sodium POC Potassium Potassium POC Chloride Chloride Carbon Dioxide POC Total CO2 Anion Gap POC Anion Gap POC BUN BUN Creatinine POC Creatinine Est Cr Clr Drug Dosing Est GFR ( Amer) Est GFR (Non-Af Amer) BUN/Creatinine Ratio Glucose POC Glucose (other) Calcium POC Ioniz Calcium Amy Total Bilirubin AST ALT Alkaline Phosphatase Total Protein Albumin Globulin Albumin/Globulin Ratio TSH Urine Color Yellow Urine Appearance Clear Urine pH 5.5 Ur Specific [place] 1.020 Urine Protein Negative Urine Glucose (UA) Negative Urine Ketones 4+ H Urine Blood Trace H Urine Nitrite Negative Urine Bilirubin Negative Urine Urobilinogen Negative Ur Leukocyte Esterase Negative Urine WBC (Auto) 0 Urine RBC (Auto) 0-4 U Hyaline Cast (Auto) 0 U Epithel Cells (Auto) 0-5 Urine Bacteria (Auto) Negative Salicylates Urine Opiates Screen Neg Ur Methadone, Qual Neg Acetaminophen Urine Barbiturates Neg Ur Phencyclidine (PCP) Neg U Amphetamin/Meth Scrn Neg MDMA (Ecstasy) Screen Neg U Benzodiazepines Scrn Neg Ur Cocaine Metabolite Neg U Marijuana (THC) Screen Neg Ethyl Alcohol mg/dL 11/01/19 11/01/19 11/01/19 18:56 18:56 18:56 WBC RBC Hgb POC Hgb Hct POC Hct MCV MCH MCHC RDW Std Deviation RDW Coeff of Chelle Plt Count MPV Immature Gran % (Auto) Neut % (Auto) Lymph % (Auto) [place] % (Auto) Eos % (Auto) Baso % (Auto) Neut # (Auto) Lymph # (Auto) [place]gs # (Auto) Eos # (Auto) Baso # (Auto) Immature Gran # (Auto) POC Sodium Sodium 137 POC Potassium Potassium 3.6 POC Chloride Chloride 102 Carbon Dioxide 23 POC Total CO2 Anion Gap 12.0 H POC Anion Gap POC BUN BUN 10 Creatinine 1.05 POC Creatinine Est Cr Clr Drug Dosing 133.5 Est GFR ( Amer) 117.0 Est GFR (Non-Af Amer) 101.0 BUN/Creatinine Ratio 9.8 L Glucose 88 POC Glucose (other) Calcium 10.3 H POC Ioniz Calcium Amy Total Bilirubin 0.6 AST 14 L ALT 18 Alkaline Phosphatase 116 Total Protein 8.6 H Albumin 4.4 Globulin 4.2 H Albumin/Globulin Ratio 1.0 TSH 2.370 Urine Color Urine Appearance Urine pH Ur Specific [place] Urine Protein Urine Glucose (UA) Urine Ketones Urine Blood Urine Nitrite Urine Bilirubin Urine Urobilinogen Ur Leukocyte Esterase Urine WBC (Auto) Urine RBC (Auto) U Hyaline Cast (Auto) U Epithel Cells (Auto) Urine Bacteria (Auto) Salicylates 2.9 Urine Opiates Screen Ur Methadone, Qual Acetaminophen < 2 L Urine Barbiturates Ur Phencyclidine (PCP) U Amphetamin/Meth Scrn MDMA (Ecstasy) Screen U Benzodiazepines Scrn Ur Cocaine Metabolite U Marijuana (THC) Screen Ethyl Alcohol mg/dL < 3.0 11/01/19 19:06 WBC RBC Hgb POC Hgb 16.3 Hct POC Hct 48 MCV MCH MCHC RDW Std Deviation RDW Coeff of Chelle Plt Count MPV Immature Gran % (Auto) Neut % (Auto) Lymph % (Auto) [place] % (Auto) Eos % (Auto) Baso % (Auto) Neut # (Auto) Lymph # (Auto) [place] # (Auto) Eos # (Auto) Baso # (Auto) Immature Gran # (Auto) POC Sodium 139 Sodium POC Potassium 3.7 Potassium POC Chloride 100 L Chloride Carbon Dioxide POC Total CO2 22 L Anion Gap POC Anion Gap 23.0 POC BUN 11 BUN Creatinine POC Creatinine 0.9 Est Cr Clr Drug Dosing Est GFR ( Amer) Est GFR (Non-Af Amer) BUN/Creatinine Ratio Glucose POC Glucose (other) 89 Calcium POC Ioniz Calcium Amy 1.25 Total Bilirubin AST ALT Alkaline Phosphatase Total Protein Albumin Globulin Albumin/Globulin Ratio TSH Urine Color Urine Appearance Urine pH Ur Specific [place] Urine Protein Urine Glucose (UA) Urine Ketones Urine Blood Urine Nitrite Urine Bilirubin Urine Urobilinogen Ur Leukocyte Esterase Urine WBC (Auto) Urine RBC (Auto) U Hyaline Cast (Auto) U Epithel Cells (Auto) Urine Bacteria (Auto) Salicylates Urine Opiates Screen Ur Methadone, Qual Acetaminophen Urine Barbiturates Ur Phencyclidine (PCP) U Amphetamin/Meth Scrn MDMA (Ecstasy) Screen U Benzodiazepines Scrn Ur Cocaine Metabolite U Marijuana (THC) Screen Ethyl Alcohol mg/dL Hospital Course (1) Suicide gesture: 11/01 - No medical sequelae of overdose - Encourage patient to engage in groups, work on healthy coping skills and discharge safety plan - will recommend no access to meds. He denies access to guns. - Schedule family meeting with parents. Patient wants to move home and do clas ses remotely. 11/02 - Pt denies current SI, but has only been investing superficial efforts in development of safety plan - Discussed continued inpatient stay to ensure stability of mood and that katelyn ent has worked on way to better tolerate stress and frustration - 72-hour notice submitted. Explained to patient the ongoing safety concerns related to discharge at this time. We are recommending ongoing hospitalization based on reasoning above. (2) Depression: 11/01 - Continue home dose of sertraline 100mg daily. Patient reports this dose has been effective for mood and anxiety symptoms, and symptoms were only exacerbated 5 days ago in the context of transferring to [place]/moving away from home. - Coordinate with outpatient psychiatrist Dr. Smith in [place], [place]. Explore whether she will do therapy, or if he should be referred for an individual therapist. 11/02 - Continue sertraline 100mg. - Brief coordination via phone with Dr. Smith - reported that most of the issues patient has been facing require therapeutic intervention as opposed to medication adjustments, and has been recommending PHP even prior to this hospitalization. She is available this afternoon and is hoping to be able to coordinate more with staff regarding discharge plan. - Pt agreeable with PHP referrals - Family meeting with parents this morning. Ultimately, it seems parents will allow patient to return home, but they are requesting additional efforts from the patient regarding a clear plan for discharge and commitment to treatment. It seems that the patient is not yet understanding of this request, and he remains preoccupied with discharge timeline. 11/03 - Continue as above - Intake scheduled with PHP, aftercare plans discussed with patient and parents - Anticipate discharge tomorrow at expiration of 72-hour notice Mental Health & Subst Abuse Tx Psychiatrist Name of Psychiatrist: Dr Nathaly Smith Psychiatrist's Date of Appointment with Psychiatrist: 11/02/19 Time of Appointment with Psychiatrist: 4:00pm Psychiatrist Release of Information: Obtained, Reviewed and Signed Therapist Name of Therapist: None Store Facility Technician Name of Store Facility Technician: None Post Discharge Appointments Primary Care Physician Name Of Family Doctor: Dr Melo Primary Care Provider Appointment Comment: call as needed Primary Care Release of Information: Obtained, Reviewed and Signed Partial or Psych Rehab Name of Partial or Psych Rehab: [facility] Partial Hospitalization Program, Dr. Arroyo Phone Number of Partial or Psych Rehab: [phone] Date of Appointment at Partial or Psych Rehab: 11/10/19 Time of Appointment at Partial or Psych Rehab: 9am Partial or Psych Rehab Appointment Comment: appt is virtual and they will email you instructions. program [id number]:30 Release of Information for Partial or Psych Rehab: Obtained, Reviewed and Signed Smoking Cessation Counseling Tobacco Cessation Medication Prescribed at Discharge: Not Applicable/Non-Smoker Contact Information Discharge Discharge Address: [address] [place] [id number] Discharge Plan Discharge Items Patient Disposition: Home - Self-Care Reason For Visit: MDD Discharge Diagnosis: Overdose Depression Anxiety Activity: Per Instructions section Non-emergency contact: Psychiatrist and Therapist Call non-emergency contact if: you have any medication questions and your symptoms worsen Follow-up/Referrals: PCP,NO [Primary Care Provider] - Diet: Regular Addtl Attending Provider Instructions: SPECIAL CARE INSTRUCTIONS: 1. Follow through with your scheduled aftercare appointments. If unable to keep an appointment, please call to reschedule. 2. Take your medication only as prescribed. Medication should not be changed or stopped without the approval of your doctor. In the event of worsening symptoms or concerns about side effects, contact your doctor immediately. 3. Utilize new healthy coping skills, anger management skills, and stress management skills learned during your hospitalization. Journal feelings and process them with a support person. Identify stressors or situations that may result in relapse, deterioration or inappropriate behaviors and develop a plan to deal with those issues. 4. If your coping skills are ineffective and you are in crisis, contact your outpatient providers for direction. If unable to reach your providers, please call the CAN HELP LINE AT or go to the closest Emergency Room. 5. Avoid alcohol and un-prescribed drugs. 6. You have been provided with the Mental Health Advance Directives Pamphlet for your review. AFTERCARE APPOINTMENTS: * Please call your insurance company prior to your scheduled appointment to confirm your aftercare providers are covered. Take your insurance information to your appointments. WHO TO CALL AND WHEN: Medical Emergencies: For questions or emergencies related to your hospital stay, please contact the Inpatient Behavioral Health Unit at [phone]. A press loader is on-call 29/09 for the Behavioral Health Unit for emergencies At any time you feel your situation is an emergency, you may also call 911 immediately. Your Doctors Instructions noted above were prepared by provider Hannah Gillette MD. Pending Studies at Discharge: No Stand-Alone Forms: My [facility], Smoking Cessation Medications and DC Order Prescriptions: Continued sertraline [Zoloft] 100 mg Tablet 100 mg PO DAILY RF: 0 melatonin 5 mg Tablet 5 mg PO HS PRN (Reason: Insomnia) RF: 0 Discharge Orders: Discharge Order (Routine); Ordered 11/05/19 Ordered By: Hannah Gillette Admission Data Admit Date/Time: 11/01/19 22:58 Attending Provider: Hannah Gillette Admit Provider: Kirstin Chavez Primary Care Provider: PCP,NO Other Interventions: Discharge Summary Assessment (RN) Last Done: 11/05/19 08:47 PSY Interdisciplinary Discharge Planning Last Done: 11/05/19 08:50 Coding Level of Care Code 25249 D/C day mgmt > 30 min Diagnoses Suicide gesture X83.8XXA Encounter type: initial encounter Depression F32.9
== END 2019-11-05 12:30 | disposition home or self-care (01) | DRG 885 ==
LOC: ED 18:27 → 3S 22:58